=== PATIENT | male | born 1960 | race Caucasian/White ===

== ENCOUNTER 2021-05-08 14:29 | Outpatient (CLI) | payer OTHER, SELFPAY ==
[2021-05-08 15:09] LABS: Anion Gap 13 mmol/L (8-16); Blood Urea Nitrogen 18 mg/dL (9-20); Calcium 9.6 mg/dL (8.4-10.2); Carbon Dioxide 24 mmol/L (22-30); Chloride 105 mmol/L (98-107); Estimated Glomerular Filt Rate 56; Glucose 94 mg/dL (75-110); Potassium 4.5 mmol/L (3.4-5.0); Sodium 142 mmol/L (137-145)
== END 2021-05-08 14:30 | disposition home or self-care (01) ==
PROVIDERS: PCP Family Medicine; Visit Provider Internal Medicine Cardiovascular Disease
DX: I10 Essential (primary) hypertension (principal)
CPT/HCPCS: 36415; 80048

== ENCOUNTER 2022-03-22 07:20 | Outpatient (CLI) | payer OTHER, SELFPAY ==
--- NOTE | 2022-04-01 20:59 | WPDSLEEPSTUD ---
Sleep Study Date of Study: 03/22/22 Ordering Provider: Rola Jones Interpreting Physician: Renetta Tomlinson MD Sleep Study Type: Split Polysomnogram Height: 1.78 m Weight: 138.346 kg Body Mass Index: 43.7 Neck Circumference (inches): 18.5 [place]: 0 Reason for Sleep Study Known obstructive sleep apnea with treatment emergent centrals; device needs to be replaced, end of life * 12/03/2013 - Split night study with severe obstructive sleep apnea, AHI is 33.9 associated with moderate snoring and multiple severe oxygen desaturation. Difficult titration with CPAP and BiPAP. Optimal pressure not found. Had treatment emergent centrals. Patient was recommended to have an ASV titration * Dec 17, 2013; ASV titration with final pressure EPAP 8 cm, minimum pressure support 6 cm, maximum pressure support 15 cm Sleep History Pato Batista is a 61-year-old man with a history of obstructive sleep apnea with treatment emergent central apneas, diagnosed in 2013. He is currently on an ASV. He now presents to the sleep lab to re-0qualify for a new device. When he is using his current therapy he rarely awakens from sleep feeling short of breath, rarely awakens at night with heartburn belching or coughing, rarely snores and is rarely loud. He frequently has trouble sleeping with a cold. He rarely wakes up gasping for breath at night rarely has breathing problems at night observed by others. He occasionally sweats excessively at night. He rarely notices his heart pounding or beating irregularly night. He does not fall asleep involuntarily or while driving. He does not have loss of muscle tone with strong emotion. He does not have daytime difficulties due to excessive sleepiness. He does not feel paralyzed on waking falling asleep and does not have vivid dreamlike scenes upon awakening or falling asleep. He does not feel afraid to go to sleep. He does not have nightmares. He occasionally remembers his dreams and occasionally has racing thoughts. He rarely feels sad, depressed or anxious. He rarely has muscular tension. He does not notice part of his body jerking. He does not kick at night or have crawling and aching feelings in his legs. He does not experience any kind of leg pain at night. He does not have morning jaw pain. He does not grind his teeth during sleep. He rarely is bothered by pain during the day. He never is awakened by pain at night. He rarely wakes up feeling stiff in the morning with sore achy muscles and rarely wakes up with pain in the neck and spine. He has insomnia and fatigue. Normal bedtime is between 8:00 p.m. and 8:30 p.m. taking an hour to fall asleep, waking approximately 4 times during the night for no apparent reason. He stays awake for about 20 minutes. He wakes the morning at 3:30 a.m.. On weekends, bedtime is the same but his wake time is later, 5:00 a.m.. He does not take naps in the afternoon or evening. Most of the time he feels adequate in the morning. He feels better in the morning compared to other times of day. Habits: Never smoked tobacco. Caffeine 5 servings a day. No alcohol or recreational drugs. [facility] Past Medical History Medical History (Updated 04/02/22 @ 21:08 by Renetta Tomlinson MD) Atrial fibrillation Gout Hyperlipidemia Hypertension Hypothyroidism Obstructive sleep apnea Surgical History Surgical History (Updated 04/02/22 @ 20:33 by Renetta Tomlinson MD) History of ventral hernia repair Social History Social History (Updated 04/02/22 @ 20:34 by Renetta Tomlinson MD) Smoking status: Former smoker Alcohol intake: never Medications Medications: Pradaxa 150 mg, 2 in the morning and evening when digoxin 0.125 mg every other day metoprolol 50 mg, 2 b.i.d. levothyroxine 50 mg every other day alternating with 75 mg every other day allopurinol 300 mg a day Lipitor 10 mg HS Sleep Procedure This test was performed using the [employer] multiple channel system including
[2022-04-02 22:29] VITALS: BMI 43.7
== END 2022-03-23 06:21 | disposition home or self-care (01) ==
LOC: ANHCSM 07:21
PROVIDERS: PCP Family Medicine
DX: G47.33 Obstructive sleep apnea (adult) (pediatric) (principal)
CPT/HCPCS: 95810; 95811

== ENCOUNTER 2022-04-19 07:39 | Outpatient (CLI) | payer OTHER, SELFPAY ==
--- NOTE | 2022-05-10 15:36 | WPDSLEEPSTUD ---
Sleep Study Date of Study: 04/19/22 Ordering Provider: Rola Jones Interpreting Physician: Renetta Tomlinson MD Sleep Study Type: ASV Height: 1.78 m Weight: 135.171 kg Body Mass Index: 42.7 Neck Circumference (inches): 18.5 [place]: 0 Reason for Sleep Study Known obstructive sleep apnea with treatment emergent centrals; ASV device needs to be replaced, end of life * 03/22/2022 Basic PSG showed severe obstructive sleep apnea, and due to the severity, he was unable to maintain sleep.? He did not meet criteria to initiate CPAP until late in the night. He started CPAP just before 5:00 a.m. He was not able to sleep while on CPAP 5 cm, and after 17 minutes with CPAP at 5 cm he decided to go home. HE now presents for an ASV titration. * Dec 17, 2013;? ASV titration with final pressure EPAP 8 cm, minimum pressure support 6 cm, maximum pressure support 15 cm * 12/03/2013 - ? Split night study with severe obstructive sleep apnea, AHI is 33.9 associated with moderate snoring and multiple severe oxygen desaturation.? Difficult titration with CPAP and BiPAP.? Optimal pressure not found.? Had treatment emergent centrals.? Patient was recommended to have an ASV titration Sleep History Pato Batista is a 61-year-old man with a history of? obstructive sleep apnea with treatment emergent central apneas, diagnosed in 2013.? He is currently on an ASV. He now presents to the sleep lab to re-0qualify for a new device.? When he is using his current therapy he rarely awakens from sleep feeling short of breath, rarely awakens at night with heartburn belching or coughing, rarely snores and is rarely loud.? He frequently has trouble sleeping with a cold.? He rarely wakes up gasping for breath at night rarely has breathing problems at night observed by others.? He occasionally sweats excessively at night.? He rarely notices his heart pounding or beating irregularly night.? He does not fall asleep involuntarily or while driving.? He does not have loss of muscle tone with strong emotion.? He does not have daytime difficulties due to excessive sleepiness.? He does not feel paralyzed on waking falling asleep and does not have vivid dreamlike scenes upon awakening or falling asleep.? He does not feel afraid to go to sleep.? He does not have nightmares.? He occasionally remembers his dreams and occasionally has racing thoughts.? He rarely feels sad, depressed or anxious.? He rarely has muscular tension.? He does not notice part of his body jerking.? He does not kick at night or have crawling and aching feelings in his legs.? He does not experience any kind of leg pain at night.? He does not have morning jaw pain.? He does not grind his teeth during sleep.? He rarely is bothered by pain during the day.? He never is awakened by pain at night.? He rarely wakes up feeling stiff in the morning with sore achy muscles and rarely wakes up with pain in the neck and spine.? He has insomnia and fatigue. ?Normal bedtime is between 8:00 p.m. and 8:30 p.m. taking an hour to fall asleep, waking approximately 4 times during the night for no apparent reason.? He stays awake for about 20 minutes.? He wakes the morning at 3:30 a.m..? On weekends, bedtime is the same but his wake time is later, 5:00 a.m..? He does not take naps in the afternoon or evening.? Most of the time he feels adequate in the morning.? He feels better in the morning compared to other times of day. Habits:? ? Never smoked tobacco.? Caffeine 5 servings a day.? No alcohol or recreational drugs. [facility] Past Medical History Medical History Atrial fibrillation Gout Hyperlipidemia Hypertension Hypothyroidism Obstructive sleep apnea Surgical History Surgical History History of ventral hernia repair Social History Social History (Updated 04/02/22 @ 20:34 by Renetta Tomlinson MD) Smoking status: Former smoker Alcohol intake: never
[2022-05-10 16:16] VITALS: BMI 42.7
== END 2022-04-20 07:01 | disposition home or self-care (01) ==
LOC: ANHCSM 07:39
PROVIDERS: PCP Family Medicine
DX: G47.33 Obstructive sleep apnea (adult) (pediatric) (principal); G47.39 Other sleep apnea
CPT/HCPCS: 95811

== ENCOUNTER 2023-01-24 10:04 | Outpatient (CLI) | payer OTHER, SELFPAY ==
[2023-01-24 10:57] LABS: Anion Gap 7 mmol/L (8-16); Blood Urea Nitrogen 23 mg/dL (9-20); Calcium 8.8 mg/dL (8.4-10.2); Carbon Dioxide 23 mmol/L (22-30); Chloride 105 mmol/L (98-107); Estimated Glomerular Filt Rate 51; Glucose 117 mg/dL (65-110); Potassium 4.2 mmol/L (3.4-5.0); Sodium 135 mmol/L (137-145)
== END 2023-01-24 10:05 | disposition home or self-care (01) ==
LOC: ANHLAB 10:09
PROVIDERS: PCP Family Medicine; Visit Provider Internal Medicine Cardiovascular Disease
DX: I10 Essential (primary) hypertension (principal)
CPT/HCPCS: 36415; 80048

== ENCOUNTER 2023-01-29 14:47 | Outpatient (CLI) | payer OTHER, SELFPAY ==
[2023-01-29 15:56] LABS: Anion Gap 6 mmol/L (8-16); Blood Urea Nitrogen 17 mg/dL (9-20); Calcium 9.1 mg/dL (8.4-10.2); Carbon Dioxide 24 mmol/L (22-30); Chloride 104 mmol/L (98-107); Estimated Glomerular Filt Rate 56; Glucose 91 mg/dL (65-110); Potassium 4.2 mmol/L (3.4-5.0); Sodium 134 mmol/L (137-145)
== END 2023-01-29 14:48 | disposition home or self-care (01) ==
LOC: ANHLAB 14:49
PROVIDERS: PCP Family Medicine; Visit Provider Internal Medicine Cardiovascular Disease
DX: I10 Essential (primary) hypertension (principal)
CPT/HCPCS: 36415; 80048